=== PATIENT | male | born 2000 | race African-American/Black ===

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

== ENCOUNTER 2022-07-26 08:29 | Emergency (ER) | payer MEDICAID ==
[~2022-07-26] VITALS: Ht 190.5 cm; Wt 127.0 kg
[2022-07-26 08:35] VITALS: BP 140/54
[2022-07-26] MEDS ORDERED: NAP5EC MT (09:31)
== END 2022-07-26 09:45 | disposition home or self-care (01) ==
LOC: ER 08:29
DX: R07.89 Other chest pain (principal); M79.10 Myalgia, unspecified site; J45.909 Unspecified asthma, uncomplicated
CPT/HCPCS: 93005; 99283

== ENCOUNTER 2024-01-11 18:33 | Emergency (ER) | payer MEDICAID ==
[~2024-01-11 18:33] MED LIST: NAP5EC MT
[2024-01-11 18:35] VITALS: PULSE 96; RESP 14
== END 2024-01-11 20:00 | disposition left against medical advice (07) ==
LOC: ER 18:33
DX: R07.9 Chest pain, unspecified (principal); Z53.21 Procedure and treatment not carried out due to patient leaving prior to being seen by health care provider

== ENCOUNTER 2024-08-29 14:23 | Emergency (ER) | payer OTHER, MEDICAID ==
[~2024-08-29] VITALS: Ht 190.5 cm; Wt 114.0 kg
[~2024-08-29 14:23] MED LIST changes: -NAP5EC MT; +NAPR-1495 MT
[2024-08-29 14:42] VITALS: O2SAT 98
[2024-08-29 15:07] VITALS: BP 136/58; PULSE 88; RESP 18; TEMP 98.6; O2SAT 100
== END 2024-08-29 18:14 | disposition home or self-care (01) ==
LOC: ER 14:23
DX: B34.9 Viral infection, unspecified (principal); J45.909 Unspecified asthma, uncomplicated
CPT/HCPCS: 99281